=== PATIENT | male | born 1975 | race African-American/Black ===

== ENCOUNTER 2016-06-01 19:02 | Emergency (ER) | payer MEDICARE ==
[2016-06-01 22:04] LABS: HEMOGLOBIN 15.7 gm/dl (14.0-17.5); RED BLOOD COUNT 5.35 M/UL (4.20-5.50); WHITE BLOOD COUNT 6.9 K/UL (4.5-11.0)
[2016-06-01 22:35] LABS: BUN/CREATININE RATIO 21 (0-10)
== END 2016-06-02 01:06 | disposition home or self-care (01) ==
LOC: ER1 19:02
PROVIDERS: Emergency Medicine
DX: R07.9 Chest pain, unspecified (principal); J45.909 Unspecified asthma, uncomplicated; F17.210 Nicotine dependence, cigarettes, uncomplicated
CPT/HCPCS: 36415; 36600; 71020; 80053; 82803; 83690; 84484; 85025; 85379; 85610; 85730; 93005; 94640; 94664; 96361; 96374; 99285; J2930; J7030

== ENCOUNTER 2016-07-02 15:16 | Emergency (ER) | payer MEDICARE | END 2016-07-02 16:49 | disposition home or self-care (01) | LOC: ER1 15:16 | DX: S60.022A Contusion of left index finger without damage to nail, initial encounter (principal); F17.210 Nicotine dependence, cigarettes, uncomplicated; W23.0XXA Caught, crushed, jammed, or pinched between moving objects, initial encounter; Y92.69 Other specified industrial and construction area as the place of occurrence of the external cause; Y99.0 Civilian activity done for income or pay | CPT/HCPCS: 73130; 99283 ==